=== PATIENT | female | born 1965 | race Caucasian/White ===

== ENCOUNTER 2018-01-30 06:27 | Day surgery (SDC) | payer BC ==
[~2018-01-30] VITALS: Ht 167.6 cm; Wt 85.6 kg
[2018-01-30] MEDS ORDERED: hydrALAzine 20 MG/ML, 1ML IV STA (07:20)
[2018-01-30] MEDS ORDERED: LACTATED RINGERS 1,000 ML IV SCH (07:22)
[2018-01-30 07:24] VITALS: BP 172/115
[2018-01-30] MEDS ORDERED: LIDOCAINE-MPF 1%, 2ML ONE (07:25)
[2018-01-30] MEDS ORDERED: DIPH25CA61 PO (07:34)
[2018-01-30] MEDS ORDERED: ASPI1TAB58 PO (07:34)
[2018-01-30] MEDS ORDERED: ORPH100T PO (07:34)
[2018-01-30] MEDS ORDERED: XOPENEX (07:34)
[2018-01-30] MEDS ORDERED: TRAM50TA2 PO (07:34)
[2018-01-30] MEDS ORDERED: LABE100T3 PO (07:34)
[2018-01-30] MEDS ORDERED: hydrALAzine 20 MG/ML, 1ML ONE (07:39)
[2018-01-30] MEDS ORDERED: PROPOFOL 50 ML ONE (07:42)
[2018-01-30] MEDS ORDERED: MIDAZOLAM 1 MG/ML, 2ML ONE (07:42)
[2018-01-30] MEDS ORDERED: LIDOCAINE-MPF 1%, 2ML INFIL ONE (08:00)
[2018-01-30] MEDS ORDERED: INDOCYANINE GREEN 25 MG VIAL ONE (08:17)
[2018-01-30] MEDS ORDERED: EPINEPHRINE 1 MG/ML, 1ML ONE (08:18)
[2018-01-30] MEDS ORDERED: FENTANYL PF 100 MCG/2ML ONE (08:48)
[2018-01-30] MEDS ORDERED: ALBUTEROL/IPRATROPIUM 2.5MG/0.5MG, 3 ML NPPB PRN (09:00)
[2018-01-30] MEDS ORDERED: MIDAZOLAM 1 MG/ML, 2ML IV PRN (09:00)
[2018-01-30] MEDS ORDERED: DIAZEPAM 5 MG/ML, 2ML IVPush PRN (09:00)
[2018-01-30] MEDS ORDERED: ACETAMINOPHEN 325 MG TABLET PO PRN (09:00)
[2018-01-30] MEDS ORDERED: MEPERIDINE/PF 25MG/0.5ML IVPush PRN (09:00)
[2018-01-30] MEDS ORDERED: LABETALOL 5MG/ML, 20ML IV PRN (09:00)
[2018-01-30] MEDS ORDERED: ALBUTEROL SULFATE 2.5 MG/3 ML NPPB PRN (09:00)
[2018-01-30] MEDS ORDERED: EPHEDRINE 50 MG/ML, 1ML IVPush PRN (09:00)
[2018-01-30] MEDS ORDERED: HYDROcodone/APAP 7.5-325MG/15ML UDC PO PRN (09:00)
[2018-01-30] MEDS ORDERED: ONDANSETRON ODT 8 MG PO PRN (09:00)
[2018-01-30] MEDS ORDERED: OXYcodone 5 MG/5 ML ORAL.SOL UDC PO PRN (09:00)
[2018-01-30] MEDS ORDERED: hydrALAzine 20 MG/ML, 1ML IV PRN (09:00)
[2018-01-30] MEDS ORDERED: FENTANYL PF 100 MCG/2ML IV PRN (09:00)
[2018-01-30] MEDS ORDERED: PROMETHAZINE 25 MG/ML, 1ML ONE (09:34)
[2018-01-30] MEDS: PROMETHAZINE 25 MG/ML, 1ML IV PRN ×2 (09:36→09:54)
[2018-01-30] MEDS ORDERED: DIPHENHYDRAMINE 50 MG/ML, 1ML ONE (10:26)
[2018-01-30] MEDS ORDERED: CYCLOBENZAPRINE 10 MG TABLET ONE (10:27)
[2018-01-30] MEDS ORDERED: KETOROLAC 30 MG/1 ML ONE (11:00)
== END 2018-01-30 11:55 ==
LOC: OUT 06:27
PROVIDERS: ATTEND Internal Medicine Geriatric Medicine
DX: Z09 Encounter for follow-up examination after completed treatment for conditions other than malignant neoplasm (principal); D12.0 Benign neoplasm of cecum; Z86.010 Personal history of colon polyps
CPT/HCPCS: 45380; 45385; 88305; A4648; J0171; J0360; J1885; J2250; J2550; J2704; J3010; J3490; J7120

== ENCOUNTER → 2019-01-28 | Outpatient (CLI) | payer BC ==
[~2019-01-28] MED LIST: ASPI1TAB58 PO; DIPH25CA61 PO; LABE100T6 PO; ORPH100T PO; TRAM50TA2 PO; XOPENEX
== END | disposition home or self-care (01) ==
LOC: SUSANVILLE 08:00
PROVIDERS: ATTEND Internal Medicine Cardiovascular Disease
DX: I08.1 Rheumatic disorders of both mitral and tricuspid valves (principal); I10 Essential (primary) hypertension
CPT/HCPCS: 93306